=== PATIENT | male | born 1930 | race Two or more races ===

== ENCOUNTER 2018-03-18 13:43 | Emergency (ER) | payer MEDICARE, MEDICAID ==
[~2018-03-18] VITALS: Ht 167.6 cm; Wt 59.0 kg
[2018-03-18 14:18] VITALS: BP 116/59
[2018-03-18 15:32] LABS: Basophils # (auto) 0.1 uL; Basophils % (auto) 0.9 % (0.0-2.0); Eosinophils # (auto) 0.3 uL; Eosinophils % (auto) 4.6 % (0.0-7.0); Hematocrit 38.7 % (41.0-53.0); Lymphocytes # (auto) 1.5 uL; Lymphocytes % (auto) 24.1 % (10.0-50.0); Mean Corpuscular Hemoglobin 29.6 pg (28.0-32.0); Mean Corpuscular Hgb Conc. 33.5 g/dL (32.0-36.0); Mean Corpuscular Volume 88.4 fL (80.0-100.0); Monocytes # (auto) 0.5 uL; Monocytes % (auto) 7.4 % (0.0-12.0); Neutrophils # (auto) 3.9 uL; Platelet Count (auto) 254 10^3/uL (140-450); Red Blood Cells 4.38 10^6/uL (4.5-5.90); Red Cell Distribution Width 15.4 % (11.8-14.3); White Blood Cell 6.2 10^3/uL (4.4-10.8)
[2018-03-18 15:48] LABS: Albumin 3.2 g/dL (3.4-5.0); BUN/Creatinine Ratio 20.1; Potassium 4.6 mmol/L (3.5-5.1)
[2018-03-18 15:51] LABS: Bilirubin, Total 0.4 mg/dL (0.2-1.0); Total Protein 7.6 g/dL (6.4-8.2)
[2018-03-18] MEDS ORDERED: SODIUM CHLORIDE 0.9% 250 ML IV ONE (16:57)
[2018-03-18] MEDS ORDERED: CLINDAMYCIN 600MG IV 50 ML IV ONE (17:00)
== END 2018-03-18 23:05 | disposition left against medical advice (07) ==
LOC: ER 13:43
DX: S90.921A Unspecified superficial injury of right foot, initial encounter (principal); Z53.21 Procedure and treatment not carried out due to patient leaving prior to being seen by health care provider; X58.XXXA Exposure to other specified factors, initial encounter; Y93.89 Activity, other specified; Y99.8 Other external cause status; Y92.89 Other specified places as the place of occurrence of the external cause
CPT/HCPCS: 36415; 71045; 73630; 80053; 83735; 85025; 85652; 94761; J3490; J7030

== ENCOUNTER 2018-05-19 14:25 | Inpatient (IN) | payer OTHER, MEDICAID ==
[~2018-05-19] VITALS: Ht 170.2 cm; Wt 58.1 kg
[2018-05-19] MEDS ORDERED: SODIUM CHLORIDE 0.9% 500 ML IVB ONE (14:55)
[2018-05-19 15:15] LABS: Basophils # (auto) 0 uL; Basophils % (auto) 0.6 % (0.0-2.0); Eosinophils # (auto) 0 uL; Eosinophils % (auto) 0.9 % (0.0-7.0); Hematocrit 39.5 % (41.0-53.0); Hemoglobin 13.4 g/dL (13.5-17.5); Lymphocytes # (auto) 1.2 uL; Lymphocytes % (auto) 25.4 % (10.0-50.0); Mean Corpuscular Hgb Conc. 33.8 g/dL (32.0-36.0); Mean Corpuscular Volume 88.6 fL (80.0-100.0); Monocytes # (auto) 0.4 uL; Monocytes % (auto) 8.3 % (0.0-12.0); Neutrophils % (auto) 64.8 % (37.0-80.0); Nucleated Red Blood Cells % 0.1 %; Platelet Count (auto) 261 10^3/uL (140-450); Red Blood Cells 4.45 10^6/uL (4.5-5.90); Red Cell Distribution Width 16.7 % (11.8-14.3); White Blood Cell 4.6 10^3/uL (4.4-10.8)
[2018-05-19 15:19] LABS: INR 0.93 (0.9-1.15); Partial Thromboplastin Time 31.8 sec (23.78-33.04)
[2018-05-19 15:23] LABS: Alanine Aminotransferase 22 U/L (16-61); Albumin 3.3 g/dL (3.4-5.0); Anion Gap 4 (5-15); Aspartate Aminotransferase 17 U/L (15-37); BUN/Creatinine Ratio 19.8; Blood Urea Nitrogen 24 mg/dL (7-18); Calcium 9.5 mg/dL (8.5-10.1); Carbon Dioxide 31 mmol/L (21-32); Chloride 99 mmol/L (98-107); GFR African American 73 mL/min; GFR Non-African American 60 mL/min; Glucose 147 mg/dL (74-106); Magnesium 2.1 mg/dL (1.6-2.6); Potassium 4.1 mmol/L (3.5-5.1); Sodium 134 mmol/L (136-145)
[2018-05-19 15:27] LABS: Alkaline Phosphatase 128 U/L (45-117); Bilirubin, Total 0.4 mg/dL (0.2-1.0); Total Protein 7.5 g/dL (6.4-8.2)
[2018-05-19] MEDS ORDERED: DEXTROSE (50%) 50ML SYRG IV PRN (18:00)
[2018-05-19] MEDS ORDERED: DOCUSATE SOD 100 MG CAP PO PRN (18:00)
[2018-05-19] MEDS ORDERED: MORPHINE SULFATE 4 MG/ML SYR/VIAL IV PRN ×2 (18:00)
[2018-05-19] MEDS ORDERED: LORazepam 2MG/ML-1ML VIAL IV PRN (18:00)
[2018-05-19] MEDS ORDERED: ACETAMINOPHEN 325 MG TAB PO PRN (18:00)
[2018-05-19] MEDS ORDERED: ONDANSETRON HCL 4 MG/2 ML VIAL IV PRN (18:00)
[2018-05-19] MEDS ORDERED: NITROGLYCERIN 0.4 MG SL TAB SL PRN (18:00)
[2018-05-19] MEDS ORDERED: cefTRIAXone 1GM/50ML D5W 50 ML IV ONE (18:00)
[2018-05-19] MEDS: ACCU-CHEK COMFORT CURVE STRIP VI SCH (22:00)
[2018-05-19] MEDS: CLINDAMYCIN 300MG IV 50 ML IV SCH (22:00)
[2018-05-19] MEDS: ASCORBIC ACID 500 MG TAB PO SCH (22:00)
[2018-05-19] MEDS: FAMOTIDINE 20 MG TAB PO SCH (22:00)
[2018-05-19] MEDS: InsuLIN REG 1unit/0.01ml Soln (100units/ml) SC SCH (22:00)
[2018-05-19] MEDS: SODIUM CHLOR 0.9% PF (SALINE LOCK) 10ML VIAL/SYR IV SCH (22:00)
[2018-05-20] VITALS (7 sets, daily range): BP systolic 118–156; BP diastolic 57–98
[2018-05-20] MEDS: ACCU-CHEK COMFORT CURVE STRIP VI SCH ×5 (05:58→22:18)
[2018-05-20] MEDS: InsuLIN REG 1unit/0.01ml Soln (100units/ml) SC SCH ×4 (05:58→22:00)
[2018-05-20 06:02] LABS: Basophils # (auto) 0 uL; Basophils % (auto) 0.5 % (0.0-2.0); Eosinophils # (auto) 0.1 uL; Eosinophils % (auto) 1.6 % (0.0-7.0); Hematocrit 36.9 % (41.0-53.0); Hemoglobin 12.4 g/dL (13.5-17.5); Lymphocytes # (auto) 1.3 uL; Lymphocytes % (auto) 27.3 % (10.0-50.0); Mean Corpuscular Hemoglobin 29.6 pg (28.0-32.0); Mean Corpuscular Hgb Conc. 33.5 g/dL (32.0-36.0); Mean Corpuscular Volume 88.6 fL (80.0-100.0); Monocytes # (auto) 0.4 uL; Monocytes % (auto) 9.1 % (0.0-12.0); Neutrophils # (auto) 2.9 uL; Neutrophils % (auto) 61.5 % (37.0-80.0); Nucleated Red Blood Cells % 0.1 %; Platelet Count (auto) 251 10^3/uL (140-450); Red Blood Cells 4.17 10^6/uL (4.5-5.90); Red Cell Distribution Width 16.7 % (11.8-14.3); White Blood Cell 4.7 10^3/uL (4.4-10.8)
[2018-05-20 06:15] LABS: Calcium 9.1 mg/dL (8.5-10.1); Potassium 4.1 mmol/L (3.5-5.1)
[2018-05-20 06:21] LABS: Bilirubin, Total 0.4 mg/dL (0.2-1.0); Total Protein 6.9 g/dL (6.4-8.2)
[2018-05-20] MEDS: CLINDAMYCIN 300MG IV 50 ML IV SCH ×3 (06:26→22:20)
[2018-05-20] MEDS: SODIUM CHLOR 0.9% PF (SALINE LOCK) 10ML VIAL/SYR IV SCH ×3 (06:26→22:20)
[2018-05-20] MEDS ORDERED: HALOPERIDOL LACTATE 5 MG/ML INJ VIAL IM PRN (09:00)
[2018-05-20] MEDS ORDERED: LORazepam 2MG/ML-1ML VIAL IV PRN (09:00)
[2018-05-20 09:36] LABS: Folate (Folic Acid) 18.18 ng/mL (5.38-24)
[2018-05-20] MEDS: cefTRIAXone 1GM/50ML D5W 50 ML IV SCH (12:52)
[2018-05-20] MEDS: ZINC SULFATE 220mg CAP or TAB PO SCH (12:52)
[2018-05-20] MEDS: MULTIPLE VITAMIN TAB PO SCH (12:53)
[2018-05-20] MEDS: Glucerna Carbsteady SHAKE Vanilla 8oz PO SCH ×2 (12:53→19:05)
[2018-05-20] MEDS: ASCORBIC ACID 500 MG TAB PO SCH ×2 (12:53→22:19)
[2018-05-20] MEDS: HYDROcodone-ACET 5/325MG TAB PO PRN (14:06)
[2018-05-20] MEDS ORDERED: IOHEXOL 350 MG/ML 100ML IJ ONE (14:38)
[2018-05-20] MEDS: FAMOTIDINE 20 MG TAB PO SCH (22:20)
[2018-05-21 05:00] VITALS: BP 107/64
[2018-05-21] MEDS: ACCU-CHEK COMFORT CURVE STRIP VI SCH ×4 (05:54→22:27)
[2018-05-21] MEDS: InsuLIN REG 1unit/0.01ml Soln (100units/ml) SC SCH ×4 (05:54→22:00)
[2018-05-21] MEDS: SODIUM CHLOR 0.9% PF (SALINE LOCK) 10ML VIAL/SYR IV SCH ×3 (05:55→22:26)
[2018-05-21 06:00] LABS: Basophils # (auto) 0 uL; Basophils % (auto) 0.7 % (0.0-2.0); Eosinophils # (auto) 0.1 uL; Eosinophils % (auto) 2.7 % (0.0-7.0); Hematocrit 34.1 % (41.0-53.0); Hemoglobin 11.5 g/dL (13.5-17.5); Lymphocytes # (auto) 1.5 uL; Lymphocytes % (auto) 30.7 % (10.0-50.0); Mean Corpuscular Hemoglobin 29.9 pg (28.0-32.0); Mean Corpuscular Hgb Conc. 33.6 g/dL (32.0-36.0); Mean Corpuscular Volume 88.9 fL (80.0-100.0); Monocytes # (auto) 0.5 uL; Monocytes % (auto) 11.4 % (0.0-12.0); Neutrophils # (auto) 2.6 uL; Neutrophils % (auto) 54.5 % (37.0-80.0); Nucleated Red Blood Cells % 0.2 %; Platelet Count (auto) 232 10^3/uL (140-450); Red Blood Cells 3.84 10^6/uL (4.5-5.90); Red Cell Distribution Width 16.7 % (11.8-14.3); White Blood Cell 4.8 10^3/uL (4.4-10.8)
[2018-05-21] MEDS: CLINDAMYCIN 300MG IV 50 ML IV SCH ×3 (06:07→22:26)
[2018-05-21 06:19] LABS: BUN/Creatinine Ratio 28.4; Calcium 8.8 mg/dL (8.5-10.1)
[2018-05-21 08:00] VITALS: BP 107/66
[2018-05-21] MEDS: MULTIPLE VITAMIN TAB PO SCH (09:06)
[2018-05-21] MEDS: ZINC SULFATE 220mg CAP or TAB PO SCH (09:06)
[2018-05-21] MEDS: cefTRIAXone 1GM/50ML D5W 50 ML IV SCH (09:06)
[2018-05-21] MEDS: ASCORBIC ACID 500 MG TAB PO SCH ×2 (09:06→22:26)
[2018-05-21] MEDS: Glucerna Carbsteady SHAKE Vanilla 8oz PO SCH ×3 (09:18→18:00)
[2018-05-21 12:00] VITALS: BP 109/66
[2018-05-21 16:00] VITALS: BP 133/65
[2018-05-21 21:10] VITALS: BP 132/69
[2018-05-21] MEDS: DONEPEZIL HYDROCHLORIDE 5 MG TAB PO SCH (22:26)
[2018-05-21] MEDS: FAMOTIDINE 20 MG TAB PO SCH (22:26)
[2018-05-22 05:35] VITALS: BP 141/85
[2018-05-22] MEDS: InsuLIN REG 1unit/0.01ml Soln (100units/ml) SC SCH ×4 (06:20→21:40)
[2018-05-22] MEDS: CLINDAMYCIN 300MG IV 50 ML IV SCH ×2 (06:20→14:30)
[2018-05-22] MEDS: SODIUM CHLOR 0.9% PF (SALINE LOCK) 10ML VIAL/SYR IV SCH ×3 (06:20→21:39)
[2018-05-22] MEDS: ACCU-CHEK COMFORT CURVE STRIP VI SCH ×4 (06:21→21:40)
[2018-05-22] MEDS: Glucerna Carbsteady SHAKE Vanilla 8oz PO SCH ×3 (07:24→17:00)
[2018-05-22 07:45] LABS: Basophils # (auto) 0 uL; Basophils % (auto) 0.8 % (0.0-2.0); Eosinophils # (auto) 0.1 uL; Eosinophils % (auto) 2.5 % (0.0-7.0); Hematocrit 37.3 % (41.0-53.0); Hemoglobin 12.4 g/dL (13.5-17.5); Lymphocytes # (auto) 1.3 uL; Mean Corpuscular Hemoglobin 29.3 pg (28.0-32.0); Mean Corpuscular Hgb Conc. 33.2 g/dL (32.0-36.0); Mean Corpuscular Volume 88.4 fL (80.0-100.0); Monocytes # (auto) 0.4 uL; Monocytes % (auto) 10.9 % (0.0-12.0); Neutrophils # (auto) 2.2 uL; Neutrophils % (auto) 53.8 % (37.0-80.0); Platelet Count (auto) 221 10^3/uL (140-450); Red Blood Cells 4.21 10^6/uL (4.5-5.90); Red Cell Distribution Width 16.8 % (11.8-14.3)
[2018-05-22 07:56] LABS: INR 0.97 (0.9-1.15); Prothrombin Time 10.4 sec (9.27-12.13)
[2018-05-22 08:00] VITALS: BP 106/54
[2018-05-22 08:01] LABS: BUN/Creatinine Ratio 26.4; Potassium 3.9 mmol/L (3.5-5.1)
[2018-05-22 09:00] VITALS: BP 106/54
[2018-05-22] MEDS: ASCORBIC ACID 500 MG TAB PO SCH ×2 (09:22→21:29)
[2018-05-22] MEDS: ZINC SULFATE 220mg CAP or TAB PO SCH (09:22)
[2018-05-22] MEDS: cefTRIAXone 1GM/50ML D5W 50 ML IV SCH (09:22)
[2018-05-22] MEDS: MULTIPLE VITAMIN TAB PO SCH (09:22)
[2018-05-22 13:00] VITALS: BP 105/54
[2018-05-22 17:00] VITALS: BP 115/58
[2018-05-22] MEDS: HYDROcodone-ACET 5/325MG TAB PO PRN (18:02)
[2018-05-22] MEDS: ATORVASTATIN 20 MG TAB PO SCH (21:29)
[2018-05-22] MEDS: FAMOTIDINE 20 MG TAB PO SCH (21:29)
[2018-05-22] MEDS: CLINDAMYCIN HCL 150 MG CAP PO SCH (21:30)
[2018-05-22] MEDS: DONEPEZIL HYDROCHLORIDE 5 MG TAB PO SCH (21:30)
[2018-05-22 22:00] VITALS: BP 117/59
[2018-05-23] MEDS: CLINDAMYCIN HCL 150 MG CAP PO SCH ×3 (05:14→19:19)
[2018-05-23] MEDS: SODIUM CHLOR 0.9% PF (SALINE LOCK) 10ML VIAL/SYR IV SCH ×3 (05:14→22:28)
[2018-05-23 05:33] VITALS: BP 115/78
[2018-05-23] MEDS: InsuLIN REG 1unit/0.01ml Soln (100units/ml) SC SCH ×4 (06:22→22:00)
[2018-05-23] MEDS: ACCU-CHEK COMFORT CURVE STRIP VI SCH ×4 (06:23→22:28)
[2018-05-23 08:00] VITALS: BP 108/63
[2018-05-23] MEDS: Glucerna Carbsteady SHAKE Vanilla 8oz PO SCH ×3 (08:00→18:00)
[2018-05-23] MEDS: cefTRIAXone 1GM/50ML D5W 50 ML IV SCH (09:28)
[2018-05-23] MEDS: ASPirin 81 mg TAB PO SCH (09:28)
[2018-05-23] MEDS: CLOPIDOGREL BISULFATE 75 MG TAB PO SCH (09:28)
[2018-05-23] MEDS: ZINC SULFATE 220mg CAP or TAB PO SCH (10:00)
[2018-05-23] MEDS: ASCORBIC ACID 500 MG TAB PO SCH ×2 (10:00→19:20)
[2018-05-23] MEDS: MULTIPLE VITAMIN TAB PO SCH (10:00)
[2018-05-23 13:00] VITALS: BP 94/58
[2018-05-23 17:00] VITALS: BP 117/67
[2018-05-23] MEDS: DONEPEZIL HYDROCHLORIDE 5 MG TAB PO SCH (19:19)
[2018-05-23] MEDS: FAMOTIDINE 20 MG TAB PO SCH (19:20)
[2018-05-23] MEDS: ATORVASTATIN 20 MG TAB PO SCH (19:20)
[2018-05-24] MEDS: CLINDAMYCIN HCL 150 MG CAP PO SCH ×2 (05:45→14:31)
[2018-05-24] MEDS: SODIUM CHLOR 0.9% PF (SALINE LOCK) 10ML VIAL/SYR IV SCH ×3 (05:46→19:17)
[2018-05-24] MEDS: InsuLIN REG 1unit/0.01ml Soln (100units/ml) SC SCH ×2 (05:54→11:04)
[2018-05-24] MEDS: ACCU-CHEK COMFORT CURVE STRIP VI SCH ×2 (05:55→11:04)
[2018-05-24] MEDS: Glucerna Carbsteady SHAKE Vanilla 8oz PO SCH ×3 (08:00→18:00)
[2018-05-24 09:00] VITALS: BP 120/64
[2018-05-24] MEDS: ASCORBIC ACID 500 MG TAB PO SCH ×2 (10:00→19:15)
[2018-05-24] MEDS: MULTIPLE VITAMIN TAB PO SCH (10:00)
[2018-05-24] MEDS: ZINC SULFATE 220mg CAP or TAB PO SCH (10:00)
[2018-05-24] MEDS: CLOPIDOGREL BISULFATE 75 MG TAB PO SCH (10:47)
[2018-05-24] MEDS: cefTRIAXone 1GM/50ML D5W 50 ML IV SCH (10:48)
[2018-05-24] MEDS: ASPirin 81 mg TAB PO SCH (10:48)
[2018-05-24] MEDS ORDERED: MORPHINE SULFATE 10 MG/ML INJ 1ML SDV IV PRN ×2 (11:15)
[2018-05-24 13:00] VITALS: BP 117/62
[2018-05-24] MEDS ORDERED: HYDROcodone-ACET 5/325MG TAB PO PRN (15:30)
[2018-05-24 16:49] VITALS: BP 126/70
[2018-05-24] MEDS: DOXYCYCLINE 100 MG TAB/CAP PO SCH ×2 (16:52→19:15)
[2018-05-24] MEDS: FAMOTIDINE 20 MG TAB PO SCH (19:15)
[2018-05-24] MEDS: DONEPEZIL HYDROCHLORIDE 5 MG TAB PO SCH (19:15)
[2018-05-24] MEDS: ATORVASTATIN 20 MG TAB PO SCH (19:16)
[2018-05-24] MEDS ORDERED: NICOTINE 14 MG/24HR TOPICAL PATCH TD ONE (19:45)
[2018-05-24 22:00] VITALS: BP 107/56
[2018-05-25 05:20] VITALS: BP 110/60
[2018-05-25 05:24] LABS: Basophils # (auto) 0 uL; Basophils % (auto) 0.5 % (0.0-2.0); Eosinophils # (auto) 0.1 uL; Eosinophils % (auto) 2.1 % (0.0-7.0); Hematocrit 35.4 % (41.0-53.0); Hemoglobin 11.9 g/dL (13.5-17.5); Lymphocytes # (auto) 1.5 uL; Lymphocytes % (auto) 34.3 % (10.0-50.0); Mean Corpuscular Hemoglobin 30.1 pg (28.0-32.0); Mean Corpuscular Hgb Conc. 33.7 g/dL (32.0-36.0); Mean Corpuscular Volume 89.3 fL (80.0-100.0); Monocytes # (auto) 0.4 uL; Monocytes % (auto) 8.7 % (0.0-12.0); Neutrophils # (auto) 2.4 uL; Neutrophils % (auto) 54.4 % (37.0-80.0); Nucleated Red Blood Cells % 0.1 %; Platelet Count (auto) 227 10^3/uL (140-450); Red Blood Cells 3.96 10^6/uL (4.5-5.90); Red Cell Distribution Width 16.8 % (11.8-14.3); White Blood Cell 4.5 10^3/uL (4.4-10.8)
[2018-05-25 05:50] LABS: Calcium 9.2 mg/dL (8.5-10.1); Potassium 3.7 mmol/L (3.5-5.1)
[2018-05-25 05:52] LABS: BUN/Creatinine Ratio 37.2
[2018-05-25] MEDS: SODIUM CHLOR 0.9% PF (SALINE LOCK) 10ML VIAL/SYR IV SCH ×3 (06:12→23:14)
[2018-05-25 07:52] LABS: INR 1.01 (0.9-1.15); Partial Thromboplastin Time 29.1 sec (23.78-33.04); Prothrombin Time 10.8 sec (9.27-12.13)
[2018-05-25] MEDS: Glucerna Carbsteady SHAKE Vanilla 8oz PO SCH ×3 (08:00→18:00)
[2018-05-25 09:00] VITALS: BP 115/60
[2018-05-25] MEDS: ZINC SULFATE 220mg CAP or TAB PO SCH (10:00)
[2018-05-25] MEDS: ASPirin 81 mg TAB PO SCH (10:00)
[2018-05-25] MEDS: ASCORBIC ACID 500 MG TAB PO SCH ×2 (10:00→23:19)
[2018-05-25] MEDS: MULTIPLE VITAMIN TAB PO SCH (10:00)
[2018-05-25] MEDS: CLOPIDOGREL BISULFATE 75 MG TAB PO SCH (11:25)
[2018-05-25] MEDS: cefTRIAXone 1GM/50ML D5W 50 ML IV SCH (11:26)
[2018-05-25] MEDS: NICOTINE 14 MG/24HR TOPICAL PATCH TD SCH (11:26)
[2018-05-25] MEDS ORDERED: LIDOCAINE 2%HCL (LOCAL ANESTH.) INJ 20ML MDV ONE (12:58)
[2018-05-25] MEDS ORDERED: IOHEXOL 350 MG/ML 100ML IJ ONE ×2 (12:58→13:51)
[2018-05-25] MEDS ORDERED: SODIUM CHL 0.9% 50 ML ONE (13:00)
[2018-05-25] MEDS ORDERED: ANGIOMAX 250 MG VIAL IV ONE (13:00)
[2018-05-25] MEDS ORDERED: fentaNYL CITRATE 100 MCG/2 ML VL ONE (13:00)
[2018-05-25] MEDS ORDERED: MIDAZOLAM HCL 1MG/1ML-2 ML VIAL ONE (13:00)
[2018-05-25] MEDS: DOXYCYCLINE 100 MG TAB/CAP PO SCH ×2 (16:54→23:17)
[2018-05-25 21:50] VITALS: BP 148/65
[2018-05-25] MEDS: LORazepam 2MG/ML-1ML VIAL IV PRN (23:16)
[2018-05-25] MEDS: TEMAZEPAM 15 MG CAP PO PRN (23:17)
[2018-05-25] MEDS: DONEPEZIL HYDROCHLORIDE 5 MG TAB PO SCH (23:18)
[2018-05-25] MEDS: FAMOTIDINE 20 MG TAB PO SCH (23:18)
[2018-05-25] MEDS: ATORVASTATIN 20 MG TAB PO SCH (23:19)
[2018-05-26 04:35] VITALS: BP 113/69
[2018-05-26] MEDS: SODIUM CHLOR 0.9% PF (SALINE LOCK) 10ML VIAL/SYR IV SCH ×3 (06:55→23:56)
[2018-05-26] MEDS: Glucerna Carbsteady SHAKE Vanilla 8oz PO SCH ×3 (08:00→18:00)
[2018-05-26 08:32] VITALS: BP 136/65
[2018-05-26] MEDS: ASCORBIC ACID 500 MG TAB PO SCH (10:00)
[2018-05-26] MEDS: NICOTINE 14 MG/24HR TOPICAL PATCH TD SCH (10:00)
[2018-05-26] MEDS: MULTIPLE VITAMIN TAB PO SCH (10:00)
[2018-05-26] MEDS: ZINC SULFATE 220mg CAP or TAB PO SCH (10:00)
[2018-05-26] MEDS: cefTRIAXone 1GM/50ML D5W 50 ML IV SCH (10:33)
[2018-05-26] MEDS: DOXYCYCLINE 100 MG TAB/CAP PO SCH ×2 (10:33→23:56)
[2018-05-26] MEDS: CLOPIDOGREL BISULFATE 75 MG TAB PO SCH (10:33)
[2018-05-26] MEDS: ASPirin 81 mg TAB PO SCH (10:34)
[2018-05-26] MEDS: LORazepam 2MG/ML-1ML VIAL IV PRN ×2 (10:40→23:57)
[2018-05-26 13:00] VITALS: BP 136/69
[2018-05-26] MEDS ORDERED: VANCOMYCIN PER PHARMACY 0 MG IV SCH (13:00)
[2018-05-26] MEDS ORDERED: VANCOMYCIN 1GM/250ML 250 ML IV ONE (15:00)
[2018-05-26] MEDS: LEVOFLOXACIN 250 MG TAB PO SCH (15:01)
[2018-05-26 17:57] VITALS: BP_SYST 136; BP_SYST 144; BP_DIAS 69; BP_DIAS 71
[2018-05-26 22:00] VITALS: BP 141/79
[2018-05-26] MEDS: TEMAZEPAM 15 MG CAP PO PRN (23:57)
[2018-05-26] MEDS: DONEPEZIL HYDROCHLORIDE 5 MG TAB PO SCH (23:58)
[2018-05-27] MEDS: ASCORBIC ACID 500 MG TAB PO SCH ×3 (00:01→22:18)
[2018-05-27] MEDS: FAMOTIDINE 20 MG TAB PO SCH ×2 (00:01→22:17)
[2018-05-27] MEDS: ATORVASTATIN 20 MG TAB PO SCH ×2 (00:03→22:17)
[2018-05-27 05:57] VITALS: BP 107/57
[2018-05-27] MEDS: Glucerna Carbsteady SHAKE Vanilla 8oz PO SCH ×3 (08:00→19:00)
[2018-05-27 09:00] VITALS: BP 111/68
[2018-05-27] MEDS: SODIUM CHLOR 0.9% PF (SALINE LOCK) 10ML VIAL/SYR IV SCH ×3 (09:04→22:18)
[2018-05-27] MEDS: VANCOMYCIN 1GM/250ML 250 ML IV SCH (09:04)
[2018-05-27] MEDS: ZINC SULFATE 220mg CAP or TAB PO SCH (10:00)
[2018-05-27] MEDS: LEVOFLOXACIN 250 MG TAB PO SCH (10:00)
[2018-05-27] MEDS: CLOPIDOGREL BISULFATE 75 MG TAB PO SCH (10:00)
[2018-05-27] MEDS: MULTIPLE VITAMIN TAB PO SCH (10:00)
[2018-05-27] MEDS: DOXYCYCLINE 100 MG TAB/CAP PO SCH ×2 (10:00→22:17)
[2018-05-27] MEDS: ASPirin 81 mg TAB PO SCH (10:00)
[2018-05-27] MEDS: NICOTINE 14 MG/24HR TOPICAL PATCH TD SCH (10:00)
[2018-05-27 12:07] LABS: Basophils # (auto) 0 uL; Basophils % (auto) 0.9 % (0.0-2.0); Eosinophils # (auto) 0.1 uL; Eosinophils % (auto) 2.8 % (0.0-7.0); Hematocrit 37.6 % (41.0-53.0); Hemoglobin 12.3 g/dL (13.5-17.5); Lymphocytes # (auto) 1.3 uL; Mean Corpuscular Hemoglobin 29.3 pg (28.0-32.0); Mean Corpuscular Hgb Conc. 32.7 g/dL (32.0-36.0); Mean Corpuscular Volume 89.8 fL (80.0-100.0); Monocytes # (auto) 0.3 uL; Monocytes % (auto) 7.1 % (0.0-12.0); Neutrophils % (auto) 62.2 % (37.0-80.0); Platelet Count (auto) 252 10^3/uL (140-450); Red Blood Cells 4.18 10^6/uL (4.5-5.90); White Blood Cell 4.8 10^3/uL (4.4-10.8)
[2018-05-27 12:22] LABS: Albumin 3.1 g/dL (3.4-5.0); BUN/Creatinine Ratio 37.8; Calcium 9.1 mg/dL (8.5-10.1); Potassium 3.6 mmol/L (3.5-5.1)
[2018-05-27 12:24] LABS: INR 1.07 (0.9-1.15); Partial Thromboplastin Time 29.6 sec (23.78-33.04); Prothrombin Time 11.4 sec (9.27-12.13)
[2018-05-27 12:25] LABS: Bilirubin, Total 0.5 mg/dL (0.2-1.0); Total Protein 6.5 g/dL (6.4-8.2)
[2018-05-27 13:00] VITALS: BP 125/61
[2018-05-27] MEDS ORDERED: ACCU-CHEK COMFORT CURVE STRIP VI ONE (13:30)
[2018-05-27] MEDS ORDERED: METOCLOPRAMIDE HCL 5MG/ml INJ 2ml VIAL IV ONE (13:30)
[2018-05-27] MEDS ORDERED: HYDROmorphone HCL 2 MG/ML VL IV PRN (13:30)
[2018-05-27] MEDS ORDERED: CLINDAMYCIN 600MG IV 50 ML IV ONE ×2 (13:48→16:07)
[2018-05-27] MEDS ORDERED: KETAMINE HCL 0 ML ONE (14:55)
[2018-05-27] MEDS ORDERED: MIDAZOLAM HCL 1MG/1ML-2 ML VIAL ONE ×2 (14:55→16:03)
[2018-05-27] MEDS ORDERED: fentaNYL CITRATE 100 MCG/2 ML VL ONE (16:03)
[2018-05-27] MEDS ORDERED: BUPIVACAINE 0.75% INJ 10ML MPV SDV IJ ONE (16:05)
[2018-05-27] MEDS ORDERED: fentaNYL CITRATE 100 MCG/2 ML VL IV PRN (16:45)
[2018-05-27] MEDS ORDERED: ePHEDrine SULFATE 50 MG/ML AMP IV PRN (16:45)
[2018-05-27] MEDS ORDERED: hydrALAZINE HCL 20 MG/ML VL IV PRN (16:45)
[2018-05-27] MEDS ORDERED: ONDANSETRON HCL 4 MG/2 ML VIAL IV ONE (16:45)
[2018-05-27 17:00] VITALS: BP 103/62
[2018-05-27 21:23] VITALS: BP 112/66
[2018-05-27] MEDS: DONEPEZIL HYDROCHLORIDE 5 MG TAB PO SCH (22:18)
[2018-05-28] MEDS: VANCOMYCIN 1GM/250ML 250 ML IV SCH ×2 (03:00→21:24)
[2018-05-28] MEDS: SODIUM CHLOR 0.9% PF (SALINE LOCK) 10ML VIAL/SYR IV SCH ×4 (05:34→21:25)
[2018-05-28 09:00] VITALS: BP 113/62
[2018-05-28] MEDS: Glucerna Carbsteady SHAKE Vanilla 8oz PO SCH ×3 (09:48→18:00)
[2018-05-28] MEDS: DOXYCYCLINE 100 MG TAB/CAP PO SCH (09:51)
[2018-05-28] MEDS: NICOTINE 14 MG/24HR TOPICAL PATCH TD SCH (09:51)
[2018-05-28] MEDS: ZINC SULFATE 220mg CAP or TAB PO SCH (09:52)
[2018-05-28] MEDS: LEVOFLOXACIN 250 MG TAB PO SCH (09:52)
[2018-05-28] MEDS: CLOPIDOGREL BISULFATE 75 MG TAB PO SCH (09:52)
[2018-05-28] MEDS: MULTIPLE VITAMIN TAB PO SCH (09:52)
[2018-05-28] MEDS: ASPirin 81 mg TAB PO SCH (09:53)
[2018-05-28] MEDS: ASCORBIC ACID 500 MG TAB PO SCH ×2 (09:53→21:14)
[2018-05-28] MEDS ORDERED: LIDOCAINE 1% (LOCAL ANESTH.) PF 5ml SDV ID ONE (13:45)
[2018-05-28 16:26] VITALS: BP 111/75
[2018-05-28] MEDS: FAMOTIDINE 20 MG TAB PO SCH (21:14)
[2018-05-28] MEDS: DONEPEZIL HYDROCHLORIDE 5 MG TAB PO SCH (21:14)
[2018-05-28] MEDS: ATORVASTATIN 20 MG TAB PO SCH (21:14)
[2018-05-28 22:00] VITALS: BP 109/89
[2018-05-29 05:00] VITALS: BP 120/73
[2018-05-29] MEDS: SODIUM CHLOR 0.9% PF (SALINE LOCK) 10ML VIAL/SYR IV SCH ×5 (05:24→21:20)
[2018-05-29 07:11] LABS: Basophils # (auto) 0 uL; Basophils % (auto) 0.5 % (0.0-2.0); Eosinophils # (auto) 0.1 uL; Eosinophils % (auto) 1.9 % (0.0-7.0); Hematocrit 35.3 % (41.0-53.0); Hemoglobin 11.8 g/dL (13.5-17.5); Lymphocytes # (auto) 1.3 uL; Lymphocytes % (auto) 25.1 % (10.0-50.0); Mean Corpuscular Hgb Conc. 33.4 g/dL (32.0-36.0); Mean Corpuscular Volume 89.8 fL (80.0-100.0); Monocytes # (auto) 0.5 uL; Monocytes % (auto) 10.4 % (0.0-12.0); Neutrophils # (auto) 3.1 uL; Neutrophils % (auto) 62.1 % (37.0-80.0); Nucleated Red Blood Cells % 0.2 %; Platelet Count (auto) 216 10^3/uL (140-450); Red Blood Cells 3.93 10^6/uL (4.5-5.90); Red Cell Distribution Width 16.5 % (11.8-14.3)
[2018-05-29 07:29] LABS: Potassium 3.6 mmol/L (3.5-5.1)
[2018-05-29 07:35] LABS: BUN/Creatinine Ratio 36.3; Calcium 9.1 mg/dL (8.5-10.1)
[2018-05-29] MEDS: Glucerna Carbsteady SHAKE Vanilla 8oz PO SCH ×3 (08:00→18:00)
[2018-05-29] MEDS: ASCORBIC ACID 500 MG TAB PO SCH ×2 (09:34→21:21)
[2018-05-29] MEDS: MULTIPLE VITAMIN TAB PO SCH (09:34)
[2018-05-29] MEDS: LEVOFLOXACIN 250 MG TAB PO SCH (09:35)
[2018-05-29] MEDS: CLOPIDOGREL BISULFATE 75 MG TAB PO SCH (09:35)
[2018-05-29] MEDS: ZINC SULFATE 220mg CAP or TAB PO SCH (09:35)
[2018-05-29] MEDS: ASPirin 81 mg TAB PO SCH (09:36)
[2018-05-29] MEDS: NICOTINE 14 MG/24HR TOPICAL PATCH TD SCH (09:40)
[2018-05-29] MEDS: VANCOMYCIN 750 MG in D5W 5% 250 ML IV SCH (16:18)
[2018-05-29 17:00] VITALS: BP 101/67
[2018-05-29] MEDS: DONEPEZIL HYDROCHLORIDE 5 MG TAB PO SCH (21:20)
[2018-05-29] MEDS: ATORVASTATIN 20 MG TAB PO SCH (21:21)
[2018-05-29] MEDS: FAMOTIDINE 20 MG TAB PO SCH (21:21)
[2018-05-29 21:50] VITALS: BP 115/65
[2018-05-30] MEDS: VANCOMYCIN 750 MG in D5W 5% 250 ML IV SCH ×2 (04:06→16:00)
[2018-05-30 05:16] VITALS: BP 113/82
[2018-05-30] MEDS: SODIUM CHLOR 0.9% PF (SALINE LOCK) 10ML VIAL/SYR IV SCH ×5 (06:26→22:05)
[2018-05-30 08:10] VITALS: BP 116/79
[2018-05-30] MEDS: Glucerna Carbsteady SHAKE Vanilla 8oz PO SCH ×3 (11:09→18:00)
[2018-05-30] MEDS: MULTIPLE VITAMIN TAB PO SCH (11:10)
[2018-05-30] MEDS: ASPirin 81 mg TAB PO SCH (11:10)
[2018-05-30] MEDS: ZINC SULFATE 220mg CAP or TAB PO SCH (11:10)
[2018-05-30] MEDS: CLOPIDOGREL BISULFATE 75 MG TAB PO SCH (11:10)
[2018-05-30] MEDS: NICOTINE 14 MG/24HR TOPICAL PATCH TD SCH (11:11)
[2018-05-30] MEDS: ASCORBIC ACID 500 MG TAB PO SCH ×2 (11:11→22:06)
[2018-05-30 13:48] VITALS: BP 105/69
[2018-05-30 16:57] VITALS: BP 109/73
[2018-05-30 22:00] VITALS: BP 110/71
[2018-05-30] MEDS: ATORVASTATIN 20 MG TAB PO SCH (22:06)
[2018-05-30] MEDS: DONEPEZIL HYDROCHLORIDE 5 MG TAB PO SCH (22:06)
[2018-05-30] MEDS: FAMOTIDINE 20 MG TAB PO SCH (22:06)
[2018-05-31] MEDS: VANCOMYCIN 750 MG in D5W 5% 250 ML IV SCH ×2 (04:14→16:21)
[2018-05-31 05:00] VITALS: BP 92/54
[2018-05-31] MEDS: SODIUM CHLOR 0.9% PF (SALINE LOCK) 10ML VIAL/SYR IV SCH ×3 (05:34→21:59)
[2018-05-31] MEDS: Glucerna Carbsteady SHAKE Vanilla 8oz PO SCH ×3 (08:00→18:00)
[2018-05-31 08:46] VITALS: BP 98/50
[2018-05-31] MEDS: MULTIPLE VITAMIN TAB PO SCH (10:26)
[2018-05-31] MEDS: ASPirin 81 mg TAB PO SCH (10:26)
[2018-05-31] MEDS: CLOPIDOGREL BISULFATE 75 MG TAB PO SCH (10:26)
[2018-05-31] MEDS: ASCORBIC ACID 500 MG TAB PO SCH ×2 (10:26→21:59)
[2018-05-31] MEDS: ZINC SULFATE 220mg CAP or TAB PO SCH (10:26)
[2018-05-31] MEDS: NICOTINE 14 MG/24HR TOPICAL PATCH TD SCH (10:27)
[2018-05-31 12:33] VITALS: BP 108/80
[2018-05-31 15:32] LABS: Calcium 9.1 mg/dL (8.5-10.1); Potassium 3.4 mmol/L (3.5-5.1)
[2018-05-31 15:34] LABS: BUN/Creatinine Ratio 32.2
[2018-05-31 16:56] VITALS: BP 111/66
[2018-05-31] MEDS: DONEPEZIL HYDROCHLORIDE 5 MG TAB PO SCH (21:59)
[2018-05-31] MEDS: ATORVASTATIN 20 MG TAB PO SCH (21:59)
[2018-05-31] MEDS: FAMOTIDINE 20 MG TAB PO SCH (21:59)
[2018-05-31 22:00] VITALS: BP 121/62
[2018-06-01] MEDS: VANCOMYCIN 750 MG in D5W 5% 250 ML IV SCH (02:54)
[2018-06-01 04:41] VITALS: BP 98/60
[2018-06-01] MEDS: Glucerna Carbsteady SHAKE Vanilla 8oz PO SCH ×3 (08:00→18:00)
[2018-06-01 08:49] VITALS: BP 96/59
[2018-06-01] MEDS: ASPirin 81 mg TAB PO SCH (10:26)
[2018-06-01] MEDS: MULTIPLE VITAMIN TAB PO SCH (10:27)
[2018-06-01] MEDS: CLOPIDOGREL BISULFATE 75 MG TAB PO SCH (10:27)
[2018-06-01] MEDS: ASCORBIC ACID 500 MG TAB PO SCH ×2 (10:27→21:18)
[2018-06-01] MEDS: ZINC SULFATE 220mg CAP or TAB PO SCH (10:27)
[2018-06-01] MEDS: SODIUM CHLOR 0.9% PF (SALINE LOCK) 10ML VIAL/SYR IV SCH ×2 (10:28→21:19)
[2018-06-01] MEDS: NICOTINE 14 MG/24HR TOPICAL PATCH TD SCH (10:28)
[2018-06-01] MEDS: VANCOMYCIN 1GM/250ML 250 ML IV SCH (16:20)
[2018-06-01 17:00] VITALS: BP 89/48
[2018-06-01] MEDS: FAMOTIDINE 20 MG TAB PO SCH (21:18)
[2018-06-01] MEDS: ATORVASTATIN 20 MG TAB PO SCH (21:18)
[2018-06-01] MEDS: DONEPEZIL HYDROCHLORIDE 5 MG TAB PO SCH (21:19)
[2018-06-01 22:00] VITALS: BP 120/69
[2018-06-02 05:00] VITALS: BP 106/67
[2018-06-02 05:55] LABS: Basophils # (auto) 0 uL; Basophils % (auto) 0.7 % (0.0-2.0); Eosinophils # (auto) 0.3 uL; Eosinophils % (auto) 4.9 % (0.0-7.0); Hematocrit 37.1 % (41.0-53.0); Hemoglobin 12.6 g/dL (13.5-17.5); Lymphocytes # (auto) 2.3 uL; Lymphocytes % (auto) 41.2 % (10.0-50.0); Mean Corpuscular Hemoglobin 30.8 pg (28.0-32.0); Mean Corpuscular Hgb Conc. 33.9 g/dL (32.0-36.0); Mean Corpuscular Volume 90.7 fL (80.0-100.0); Monocytes # (auto) 0.4 uL; Monocytes % (auto) 7.8 % (0.0-12.0); Neutrophils # (auto) 2.6 uL; Neutrophils % (auto) 45.4 % (37.0-80.0); Nucleated Red Blood Cells % 0.1 %; Platelet Count (auto) 212 10^3/uL (140-450); Red Blood Cells 4.09 10^6/uL (4.5-5.90); Red Cell Distribution Width 16.9 % (11.8-14.3); White Blood Cell 5.7 10^3/uL (4.4-10.8)
[2018-06-02 06:18] LABS: BUN/Creatinine Ratio 29.4; Calcium 8.7 mg/dL (8.5-10.1)
[2018-06-02] MEDS: ZINC SULFATE 220mg CAP or TAB PO SCH (08:29)
[2018-06-02] MEDS: CLOPIDOGREL BISULFATE 75 MG TAB PO SCH (08:29)
[2018-06-02] MEDS: NICOTINE 14 MG/24HR TOPICAL PATCH TD SCH (08:29)
[2018-06-02] MEDS: MULTIPLE VITAMIN TAB PO SCH (08:29)
[2018-06-02] MEDS: ASCORBIC ACID 500 MG TAB PO SCH ×2 (08:29→22:00)
[2018-06-02] MEDS: Glucerna Carbsteady SHAKE Vanilla 8oz PO SCH ×2 (08:30→12:00)
[2018-06-02] MEDS: ASPirin 81 mg TAB PO SCH (08:30)
[2018-06-02] MEDS: SODIUM CHLOR 0.9% PF (SALINE LOCK) 10ML VIAL/SYR IV SCH ×2 (08:30→22:00)
[2018-06-02] MEDS ORDERED: HALOPERIDOL LACTATE 5 MG/ML INJ VIAL IM PRN (08:45)
[2018-06-02 09:00] VITALS: BP 86/60
[2018-06-02 13:00] VITALS: BP 94/60
[2018-06-02 17:00] VITALS: BP 120/66
[2018-06-02 20:00] VITALS: BP 127/70
[2018-06-02 22:00] VITALS: BP 127/70
[2018-06-02] MEDS: DONEPEZIL HYDROCHLORIDE 5 MG TAB PO SCH (22:00)
[2018-06-02] MEDS: ATORVASTATIN 20 MG TAB PO SCH (22:00)
[2018-06-02] MEDS: FAMOTIDINE 20 MG TAB PO SCH (22:00)
[2018-06-03 05:00] VITALS: BP 110/64
[2018-06-03] MEDS: Glucerna Carbsteady SHAKE Vanilla 8oz PO SCH ×3 (08:30→18:16)
[2018-06-03 09:00] VITALS: BP 110/66
[2018-06-03] MEDS: SODIUM CHLOR 0.9% PF (SALINE LOCK) 10ML VIAL/SYR IV SCH ×2 (09:45→21:31)
[2018-06-03] MEDS: ASPirin 81 mg TAB PO SCH (09:45)
[2018-06-03] MEDS: ZINC SULFATE 220mg CAP or TAB PO SCH (09:45)
[2018-06-03] MEDS: CLOPIDOGREL BISULFATE 75 MG TAB PO SCH (09:45)
[2018-06-03] MEDS: MULTIPLE VITAMIN TAB PO SCH (09:45)
[2018-06-03] MEDS: ASCORBIC ACID 500 MG TAB PO SCH ×2 (09:45→21:31)
[2018-06-03] MEDS: NICOTINE 14 MG/24HR TOPICAL PATCH TD SCH (09:50)
[2018-06-03 13:00] VITALS: BP 119/74
[2018-06-03 14:46] VITALS: BP 121/66
[2018-06-03 17:00] VITALS: BP 112/71
[2018-06-03] MEDS: VANCOMYCIN 1GM/250ML 250 ML IV SCH (17:15)
[2018-06-03] MEDS: ATORVASTATIN 20 MG TAB PO SCH (21:31)
[2018-06-03] MEDS: FAMOTIDINE 20 MG TAB PO SCH (21:31)
[2018-06-03] MEDS: DONEPEZIL HYDROCHLORIDE 5 MG TAB PO SCH (21:31)
[2018-06-03 22:00] VITALS: BP 93/56
[2018-06-04 05:01] VITALS: BP 95/55
[2018-06-04 06:04] LABS: Basophils # (auto) 0 uL; Basophils % (auto) 0.8 % (0.0-2.0); Eosinophils # (auto) 0.2 uL; Eosinophils % (auto) 3.7 % (0.0-7.0); Hemoglobin 11.1 g/dL (13.5-17.5); Lymphocytes # (auto) 1.9 uL; Lymphocytes % (auto) 35.3 % (10.0-50.0); Mean Corpuscular Hemoglobin 30.6 pg (28.0-32.0); Mean Corpuscular Hgb Conc. 33.5 g/dL (32.0-36.0); Mean Corpuscular Volume 91.3 fL (80.0-100.0); Monocytes # (auto) 0.5 uL; Monocytes % (auto) 8.3 % (0.0-12.0); Neutrophils # (auto) 2.8 uL; Neutrophils % (auto) 51.9 % (37.0-80.0); Nucleated Red Blood Cells % 0.1 %; Platelet Count (auto) 178 10^3/uL (140-450); Red Blood Cells 3.62 10^6/uL (4.5-5.90); Red Cell Distribution Width 16.9 % (11.8-14.3); White Blood Cell 5.4 10^3/uL (4.4-10.8)
[2018-06-04 06:42] LABS: Potassium 3.7 mmol/L (3.5-5.1)
[2018-06-04 06:48] LABS: BUN/Creatinine Ratio 33.7; Calcium 8.6 mg/dL (8.5-10.1)
[2018-06-04 08:00] VITALS: BP 94/51
[2018-06-04] MEDS: Glucerna Carbsteady SHAKE Vanilla 8oz PO SCH ×3 (08:15→19:09)
[2018-06-04] MEDS: SODIUM CHLOR 0.9% PF (SALINE LOCK) 10ML VIAL/SYR IV SCH ×2 (09:53→23:06)
[2018-06-04] MEDS: MULTIPLE VITAMIN TAB PO SCH (09:54)
[2018-06-04] MEDS: ZINC SULFATE 220mg CAP or TAB PO SCH (09:54)
[2018-06-04] MEDS: CLOPIDOGREL BISULFATE 75 MG TAB PO SCH (09:54)
[2018-06-04] MEDS: ASPirin 81 mg TAB PO SCH (09:54)
[2018-06-04] MEDS: ASCORBIC ACID 500 MG TAB PO SCH ×2 (09:54→23:06)
[2018-06-04] MEDS: NICOTINE 14 MG/24HR TOPICAL PATCH TD SCH (09:55)
[2018-06-04 12:00] VITALS: BP 100/63
[2018-06-04] MEDS ORDERED: MORPHINE SULFATE 4 MG/ML SYR/VIAL IV PRN (12:00)
[2018-06-04] MEDS ORDERED: BACITRACIN-POLYMYXIN B TOPICAL OINT UD TOP SCH (13:00)
[2018-06-04] MEDS: VANCOMYCIN 1GM/250ML 250 ML IV SCH (16:30)
[2018-06-04 17:00] VITALS: BP 123/65
[2018-06-04 22:00] VITALS: BP 113/71
[2018-06-04] MEDS: ATORVASTATIN 20 MG TAB PO SCH (23:05)
[2018-06-04] MEDS: DONEPEZIL HYDROCHLORIDE 5 MG TAB PO SCH (23:05)
[2018-06-04] MEDS: FAMOTIDINE 20 MG TAB PO SCH (23:06)
[2018-06-05 05:08] VITALS: BP 132/73
[2018-06-05] MEDS: Glucerna Carbsteady SHAKE Vanilla 8oz PO SCH ×2 (07:40→12:00)
[2018-06-05 08:28] VITALS: BP_SYST 102; BP_SYST 118; BP_DIAS 69; BP_DIAS 72
[2018-06-05] MEDS: ASCORBIC ACID 500 MG TAB PO SCH (09:42)
[2018-06-05] MEDS: CLOPIDOGREL BISULFATE 75 MG TAB PO SCH (09:42)
[2018-06-05] MEDS: MULTIPLE VITAMIN TAB PO SCH (09:42)
[2018-06-05] MEDS: ASPirin 81 mg TAB PO SCH (09:42)
[2018-06-05] MEDS: ZINC SULFATE 220mg CAP or TAB PO SCH (09:42)
[2018-06-05] MEDS: NICOTINE 14 MG/24HR TOPICAL PATCH TD SCH (09:46)
[2018-06-05] MEDS: SODIUM CHLOR 0.9% PF (SALINE LOCK) 10ML VIAL/SYR IV SCH (09:48)
[2018-06-05 13:19] VITALS: BP 104/70
[2018-06-05] MEDS: VANCOMYCIN 1GM/250ML 250 ML IV SCH (16:28)
[2018-06-05 17:19] VITALS: BP 121/66
== END 2018-06-05 19:03 | disposition home health service (06) | DRG 616 ==
LOC: ER 14:31 → TELE 17:59 → TELE-WESTW 23:09 → WEST WING 05-24 16:00
PROVIDERS: ADMIT Internal Medicine; ATTEND Internal Medicine Pulmonary Disease
PROC: 047R3ZZ Dilation of Right Posterior Tibial Artery, Percutaneous Approach (ICD-10-PCS; 2018-05-27)
PROC: B41G1ZZ Fluoroscopy of Left Lower Extremity Arteries using Low Osmolar Contrast (ICD-10-PCS; 2018-05-27)
PROC: B41F1ZZ Fluoroscopy of Right Lower Extremity Arteries using Low Osmolar Contrast (ICD-10-PCS; 2018-05-27)
PROC: 02HV33Z Insertion of Infusion Device into Superior Vena Cava, Percutaneous Approach (ICD-10-PCS; 2018-05-27)
PROC: 0Y6P0Z0 Detachment at Right 1st Toe, Complete, Open Approach (ICD-10-PCS; principal; 2018-05-27 16:15)
DX: E11.69 Type 2 diabetes mellitus with other specified complication (principal); I62.03 Nontraumatic chronic subdural hemorrhage; M86.171 Other acute osteomyelitis, right ankle and foot; E87.1 Hypo-osmolality and hyponatremia; E44.0 Moderate protein-calorie malnutrition; L03.115 Cellulitis of right lower limb; L97.319 Non-pressure chronic ulcer of right ankle with unspecified severity; M86.8X7 Other osteomyelitis, ankle and foot; E11.40 Type 2 diabetes mellitus with diabetic neuropathy, unspecified; G92 Toxic encephalopathy; I12.9 Hypertensive chronic kidney disease with stage 1 through stage 4 chronic kidney disease, or unspecified chronic kidney disease; E11.22 Type 2 diabetes mellitus with diabetic chronic kidney disease; F17.210 Nicotine dependence, cigarettes, uncomplicated; N18.2 Chronic kidney disease, stage 2 (mild); E11.621 Type 2 diabetes mellitus with foot ulcer; L97.519 Non-pressure chronic ulcer of other part of right foot with unspecified severity; D63.8 Anemia in other chronic diseases classified elsewhere; R91.8 Other nonspecific abnormal finding of lung field; E11.21 Type 2 diabetes mellitus with diabetic nephropathy; D18.1 Lymphangioma, any site; E11.65 Type 2 diabetes mellitus with hyperglycemia; I70.202 Unspecified atherosclerosis of native arteries of extremities, left leg; E11.51 Type 2 diabetes mellitus with diabetic peripheral angiopathy without gangrene; F29 Unspecified psychosis not due to a substance or known physiological condition; F03.90 Unspecified dementia, unspecified severity, without behavioral disturbance, psychotic disturbance, mood disturbance, and anxiety; B95.61 Methicillin susceptible Staphylococcus aureus infection as the cause of diseases classified elsewhere; B95.2 Enterococcus as the cause of diseases classified elsewhere; B96.1 Klebsiella pneumoniae [K. pneumoniae] as the cause of diseases classified elsewhere; Z79.899 Other long term (current) drug therapy; Z79.82 Long term (current) use of aspirin; Z89.421 Acquired absence of other right toe(s); Z68.20 Body mass index [BMI] 20.0-20.9, adult
CPT/HCPCS: 36415; 36569; 70450; 70551; 71045; 71250; 73700; 75635; 80048; 80053; 80202; 82607; 82746; 82962; 83036; 83605; 83735; 84443; 84484; 85025; 85610; 85652; 85730; 86850; 86900; 86901; 87040; 87070; 87075; 87077; 87186; 87205; 93005; 93306; 93886; 93926; 95819; 96360; 97116; 97163; 97530; 99152; A6257; C1769; G0378; J0696; J2250; J3490; J7060

== ENCOUNTER 2018-07-30 18:29 | Inpatient (IN) | payer OTHER, MEDICAID | END 2018-08-08 14:20 | disposition home or self-care (01) | LOC: ER 18:29 → OVERFLOW 07-31 00:37 → EAST 07-31 11:53 → WEST WING 07-31 19:02 | DX: J18.9 Pneumonia, unspecified organism (principal); E44.1 Mild protein-calorie malnutrition; R64 Cachexia; J44.0 Chronic obstructive pulmonary disease with (acute) lower respiratory infection; R06.03 Acute respiratory distress; M47.814 Spondylosis without myelopathy or radiculopathy, thoracic region; M75.102 Unspecified rotator cuff tear or rupture of left shoulder, not specified as traumatic; I77.810 Thoracic aortic ectasia; I70.0 Atherosclerosis of aorta; F17.210 Nicotine dependence, cigarettes, uncomplicated; R91.1 Solitary pulmonary nodule ==

== ENCOUNTER 2018-09-27 14:34 | Inpatient (IN) | payer OTHER, MEDICAID | END 2018-10-02 22:30 | disposition home or self-care (01) | LOC: ER 14:34 → TELE 17:25 → TELE-CENTR 20:55 | DX: A41.9 Sepsis, unspecified organism (principal); N17.0 Acute kidney failure with tubular necrosis; I26.99 Other pulmonary embolism without acute cor pulmonale; L03.115 Cellulitis of right lower limb; I82.403 Acute embolism and thrombosis of unspecified deep veins of lower extremity, bilateral; I95.9 Hypotension, unspecified; E86.0 Dehydration; I70.90 Unspecified atherosclerosis; J44.9 Chronic obstructive pulmonary disease, unspecified; D63.8 Anemia in other chronic diseases classified elsewhere; N18.3 Chronic kidney disease, stage 3 (moderate); E11.21 Type 2 diabetes mellitus with diabetic nephropathy; E11.22 Type 2 diabetes mellitus with diabetic chronic kidney disease; E11.51 Type 2 diabetes mellitus with diabetic peripheral angiopathy without gangrene; I12.9 Hypertensive chronic kidney disease with stage 1 through stage 4 chronic kidney disease, or unspecified chronic kidney disease ==